=== PATIENT | female | born 1975 | race Caucasian/White ===

== ENCOUNTER 2016-12-12 14:03 | Inpatient (IN) ==
--- NOTE | 2016-12-12 14:29 | EKG Report ---
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
[2016-12-12] MEDS ORDERED: SODIUM CHLORIDE 0.9% 100 ML IV ONE (14:38)
[2016-12-12] MEDS ORDERED: DILTIAZEM 100 MG VIAL.ADD IV ONE (14:39)
[2016-12-12] MEDS ORDERED: DILTIAZEM 50 MG/10 ML VIAL IV ONE (14:39)
[2016-12-12] MEDS ORDERED: SODIUM CHLORIDE 0.9% 500 ML IV STA (14:47)
[2016-12-12] MEDS ORDERED: DILTIAZEM 50 MG/10 ML VIAL IV STA ×3 (14:47→15:44)
[2016-12-12] MEDS ORDERED: ASPIRIN 325 MG TABLET PO STA (14:53)
[2016-12-12 14:59] LABS: Basophils % 0.4 % (0.0-0.8); Eosinophils % 0.3 % (0.00-10.9); Hematocrit 42.3 VOL% (35.7-47.0); Hemoglobin 14.4 GM/DL (12.0-16.0); Immature Granulocytes % 0.6 %; Immature Granulocytes Absolute 0.07 #; Lymphocytes # 1.4 10*3/uL (1.4-4.0); Lymphocytes % 12.2 % (21.3-54.2); Mean Corpuscular Hemoglobin 31 PG (27-34); Mean Corpuscular Volume 90.8 FL (87-102); Mean Platelet Volume 9.5 FL (9.6-12.0); Monocytes # 0.6 10*3/uL (0.11-0.8); Monocytes % 5.4 % (1.7-12.7); Neutrophils # 9.3 10*3/uL (1.4-7.4); Neutrophils % 81.1 % (38.7-73.9); Platelet Count 238 T/CUMM (130-400); Red Blood Count 4.66 MC/CUMM (3.8-5.5); Red Cell Distribution Width 13.6 % (9.3-17.3); White Blood Count 11.4 T/CUMM (4-12)
[2016-12-12] MEDS ORDERED: DILTIAZEM INJ 100 MG in SODIUM CHLORIDE 0.9% 100 ML IV SCH (15:00)
[2016-12-12] MEDS ORDERED: METOPROLOL TARTRATE 5 MG/5 ML VIAL IV STA (15:03)
[2016-12-12 15:05] LABS: PT Patient Result 10.7 SECS
[2016-12-12] MEDS ORDERED: ASPIRIN 325 MG TABLET ONE (15:05)
[2016-12-12] MEDS ORDERED: METOPROLOL TARTRATE 5 MG/5 ML VIAL IV ONE (15:05)
--- NOTE | 2016-12-12 15:12 | XRay Report ---
XR chest 1V portable Indication: Shortness of breath. Chest one view: Comparison 11/26/2011. Mild cardiomegaly is present with central pulmonary vascular congestion and interstitial prominence of both lungs diffusely. No focal infiltrates shown. Lungs are hypoinflated, aggravated by morbid obesity. Impression: Mild CHF. Pulmonary hypoinflation. PROCEDURE INTERPRETED AT [facility] DEPARTMENT OF RADIOLOGY Final Report Signed by: Jose Elias Castellanos M.D.
[2016-12-12 15:22] LABS: Free T4 (Free Thyroxine) 1.12 NG/DL (0.76-1.46); Magnesium 1.9 MG/DL (1.8-2.4)
--- NOTE | 2016-12-12 15:27 | CT Report ---
Exam: CT head without intravenous contrast Clinical History: 41 years Female syncope, weakness Technique: Axial computed tomography images of the head/brain without intravenous contrast Comparison: No relevant comparisons Findings: Brain: Unremarkable. Gamino-white matter distinction maintained. No mass effect. No intra or extra-axial hemorrhage. Ventricles: Unremarkable. No ventriculomegaly. Bones/joints: Calvarium is intact Soft tissues: Unremarkable Sinuses: Small retention cysts within the maxillary sinuses Mastoid air cells: Unremarkable visualized. Impression: 1. No acute intracranial abnormality PROCEDURE INTERPRETED AT [facility] DEPARTMENT OF RADIOLOGY Final Report Signed by: Colby Gamino
[2016-12-12 15:28] LABS: Albumin 3.7 G/DL (3.4-5.0); Bilirubin,Total 0.6 MG/DL (0.2-1.0); Calcium 9.3 MG/DL (8.5-10.1); Potassium 3.9 MMOL/L (3.5-5.1); Thyroid Stimulating Hormone 1.56 uIU/ml (0.358-3.74); Total Protein 8.5 G/DL (6.4-8.3); Troponin I Only 0.045 NG/ML (0.00-0.045)
[2016-12-12] MEDS ORDERED: AMIODARONE 150 MG/3 ML VIAL ONE (16:04)
[2016-12-12] MEDS ORDERED: AMIODARONE INJ 150 MG in DEXTROSE 5% 100 ML IV ONE (16:04)
[2016-12-12] MEDS ORDERED: FUROSEMIDE 40 MG/4 ML VIAL IV STA (16:28)
[2016-12-12] MEDS ORDERED: AMIODARONE INJ 450 MG in DEXTROSE 5% 241 ML IV SCH ×3 (16:30→23:45)
--- NOTE | 2016-12-12 16:41 | Emergency Department Note ---
Morgan Sanchez Brooke, am scribing for, and in the presence of, Junior Roberts MD 14 :34. Armando Sanchez Charles R, MD, personally performed the services described in this documentation, ascribed by Evon Mora in my presence, and it is both accurate and complete [id number] . Arrival - Arrival Chief Complaint: Arrhythmia/Palpitations Stated Complaint: chest pain ED Nursing Triage Note: pt was fighting with her son and then she passed out and "quit breathing." pt doesnt remeber what happened. states feels like heart is racing Mode of Arrival: Stretcher Limitations: No Limitations Source: Patient, Family, EMS, RN Notes Reviewed Time Seen by Provider: 12/12/16 14:16 - History of Present Illness HPI Narrative: Patient is a 41 year old female who presents to the ED following an episode where she "quit breathing." Patient says she was sitting up at the table when it happened. Family member in the room with her says that he "revived her." Patient says she had just finished arguing with her son when this happened. Patient says it feels like her heart is "fluttering" but she denies having chest pain or shortness of breath. She also says that her tongue feels "numb." Patient says her Boiler Room Helper, at [facility], prescribed her Nifedipine 30mg and Metoprolol "to control the elevated heart rate." She says she has not taken any of her medications today. She has PMHx of HTN, hypothyroidism, and obstructive sleep apnea. Patient does have a c-pap machine but she says she does not use it because "I can't sleep with it." Patient says she sleeps sitting up on the couch every night. She says she does not have a history of diabetes but did have a high A1C "a long time ago." She states "my sugar is usually not high." She is not a smoker. Her Primary Care Provider is whoever is available at the [facility] in [facility]. Allergies/Adverse Reactions: Allergies Allergy/AdvReac Type Severity Reaction Status Date / Time No Known Allergies Allergy Unverified 12/12/16 14:13 Home Medications: Home Medications Medication Instructions Recorded Confirmed Type Levothyroxine Tab [Synthroid Tab] 100 mcg PO DAILY@0700 12/12/16 12/12/16 History Lisinopril/Hydrochlorothiazide 1 each PO BID 12/12/16 12/12/16 History [Lisinopril-Hctz 20-12.5 mg Tab] Metoprolol Succinate 100 mg PO QAM 12/12/16 12/12/16 History NIFEdipine [Nifedipine ER] 30 mg PO QAM 12/12/16 12/12/16 History Review of System - Review of System 12 point system: reviewed and no additional remarkable complaints except as stated - Review of System Constitutional: Absent: fever Respiratory: Present: other ("quit breathing"). Absent: respiratory distress Cardiovascular: Absent: chest pain Skin: Absent: rash Medical,Surgical,& Family Hx - Medical History Cardio: History of: Hypertension Endocrine: History of: Thyroid Disorder (hypothyoid) Respiratory: History of: Obstructive Sleep Apnea - Social History Smoking Status: Never smoker Frequency of Alcohol Use: Occasionally Type of Drug Use: None Exam Vital Signs: Vital Signs Temperature 97.6 F 12/12/16 14:08 Pulse Rate 149 H 12/12/16 14:08 Respiratory Rate 24 12/12/16 14:25 Blood Pressure 183/101 12/12/16 14:08 O2 Sat by Pulse Oximetry 96 12/12/16 14:08 - General General appearance: alert, in no apparent distress, obese (morbidly), other ( poor hygiene) - Head Head exam: Present: atraumatic, normocephalic - Eye Eye exam: Present: normal appearance, PERRL, EOMI - ENT ENT exam: Present: normal exam - Neck Neck exam: Present: normal inspection - Chest Chest inspection: Present: normal inspection, symmetric chest wall rise - Respiratory Respiratory exam: Present: rales (bilaterally), rhonchi (bilaterally), other ( decreased breath sounds but it may be due to her weight) - Cardiovascular Cardiovascular exam: Present: tachycardia, irregular rhythm, normal heart sounds. Absent: regular rate, normal rhythm - Abdominal Exam Abdominal exam: Present: soft, normal bowel sounds. Absent: distention, tenderness - Extremities Exam Extremities exam: Present: pedal edema (+1 bilateral lower extremity) - Back Exam Back exam: Present: normal inspection - Neurological Exam Neurological exam: Present: alert, oriented X3 - Psychiatric Psychiatric exam: Present: normal affect, normal mood - Skin Skin exam: Present: warm, dry, intact, normal color Course - Reevaluation(s) Reevaluation #1: Patient still having palpitation some minimal shortness of breath no chest pain. Multiple attempts were tried to lower the patient's heart rate patient was given a Adenocard twice 6 mg and 12 mg which failed to lower her heart rate , patient was given Cardizem bolus and infusion which failed to lower her heart rate, patient was given IV beta-erna which failed to lower her heart rate. Patient does not want to be shocked using electric cardioversion at this point. We spoke to Dr. Flores he said this to admit to his service will keep her on a amiodarone infusion. Patient was also given amiodarone emergency room which did not show any decrease in heart rate as well Time: 16:59 - Consultations Consultation #1: Dr. Flores will admit patient to the hospital Time: 16:59 Results - Labs CBC & BMP: 12/12/16 14:22 12/12/16 14:22 Lab Results: I have reviewed the patients labs Labs: Laboratory Tests 12/12/16 14:22 WBC 11.4 RBC 4.66 Hgb 14.4 Hct 42.3 MCV 90.8 MCH 31 MCHC 34.0 RDW 13.6 Plt Count 238 MPV 9.5 L Neut % (Auto) 81.1 H Lymph % (Auto) 12.2 L [place] % (Auto) 5.4 Eos % (Auto) 0.3 Baso % (Auto) 0.4 Neut # (Auto) 9.3 H Lymph # (Auto) 1.4 [place] # (Auto) 0.6 Eos # (Auto) 0.0 Baso # (Auto) 0.0 Immature Gran % 0.6 Nucleated RBC % 0.0 Immature Gran # 0.07 Nucleated RBCs # 0.00 Immature Plt Fraction 0.0 Laboratory Tests 12/12/16 12/12/16 12/12/16 14:22 14:22 14:22 INR 1.0 PT Patient/Control Mix 10.7 D-Dimer, Quantitative Sodium 136 Potassium 3.9 Chloride 102 Carbon Dioxide 26 Anion Gap 11.9 BUN 12 Creatinine 0.70 GFR Calculation 180 BUN/Creatinine Ratio 17.00 Glucose 211 H Calculated Osmolality 277.0 Calcium 9.3 Magnesium 1.9 Total Bilirubin 0.60 AST 68 H ALT 71 H Alkaline Phosphatase 70 Troponin I 0.045 Total Protein 8.5 H Albumin 3.7 Globulin 4.8 H Albumin/Globulin Ratio 0.7 L Free T4 1.12 TSH 3rd Generation 1.560 12/12/16 14:22 INR PT Patient/Control Mix D-Dimer, Quantitative <= 0.5 Sodium Potassium Chloride Carbon Dioxide Anion Gap BUN Creatinine GFR Calculation BUN/Creatinine Ratio Glucose Calculated Osmolality Calcium Magnesium Total Bilirubin AST ALT Alkaline Phosphatase Troponin I Total Protein Albumin Globulin Albumin/Globulin Ratio Free T4 TSH 3rd Generation Laboratory Tests 12/12/16 14:22 B-Natriuretic Peptide 3 Laboratory Tests 12/12/16 12/12/16 14:22 14:22 Urine Color Yellow Urine Appearance Slightly hazy Urine pH 5.0 Ur Specific [place] 1.018 Urine Protein 100 Urine Glucose (UA) 50 Urine Ketones 20 Urine Blood Negative Urine Nitrate Negative Urine Bilirubin Negative Urine Urobilinogen < 2.0 H Urine Leukocytes Negative Urine RBC 1 Urine WBC 2 Ur Squamous Epith Cells Occasional Urine Bacteria Occasional Urine Mucus Occasional Ur Culture Indicated? Not indicated Urine Opiates Screen Negative Ur Barbiturates Screen Negative Ur Phencyclidine Scrn Negative U Amphetamine/Methamph Negative U Benzodiazepines Scrn Negative U Cocaine Metab Screen Negative U Cannabinoids Screen Negative - Diagnostic Findings Procedure: Chest x-ray: report reviewed by me (Mild CHF. Pulmonary hypoinflation.), CT: report reviewed by me (CT head/brain wo con: No acute intracranial abnormality.) Critical Care Time Critical Care Time: Yes Total Critical Care Time: 60 Disposition Clinical Impression: Palpitations, Supraventricular tachycardia, Syncope and collapse, Morbid obesity, Pickwickian syndrome, MCKINLEY (obstructive sleep apnea), Atrial fibrillation with RVR Case discussed with: patient, patient's family Disposition: Still a Patient Condition: Guarded Time of Disposition: 17:01
[2016-12-12] MEDS ORDERED: ADENOSINE 6 MG/2 ML VIAL ONE (16:42)
[2016-12-12 16:44] LABS: Barbiturates Screen,Urine Negative (Negative); Benzodiazepines Screen,Urine Negative (Negative); Cannabinoid Screen,Urine Negative (Negative); Opiate Screen,Urine Negative (Negative); Phencyclidine Screen,Urine Negative (Negative)
[2016-12-12 16:46] LABS: Apearance,Urine Slightly Hazy (Clear); Bacteria,Urine Occasional /HPF (Few); Bilirubin,Urine Negative (Negative); Blood, Urine Negative (Negative); Glucose,Urine (UA) 50 mg/dL (Negative); Ketones,Urine 20 mg/dL (Negative); Mucus,Urine Occasional /LPF (Occasional); Nitrite,Urine Negative (Negative); Protein,Urine 100 MG/DL; RBC,Urine 1 /HPF (0-4); Squamous Epithelial Cell,Urine Occasional /HPF (0-10); Urine Color Yellow (Yellow); Urine Specific Gravity 1.018 (1.001-1.035); Urine Urobilinogen < 2.0 EU/DL (0.2-1.0); WBC,Urine 2 /HPF (0-6)
[2016-12-12] MEDS ORDERED: ADENOSINE 6 MG/2 ML VIAL IV STA ×2 (16:54→16:55)
[2016-12-12] MEDS ORDERED: FUROSEMIDE 40 MG/4 ML VIAL ONE (16:58)
[2016-12-12] MEDS ORDERED: ALBUTEROL/IPRATROPIUM 3 ML NEB RESP TX PRN (18:53)
[2016-12-12] MEDS ORDERED: SODIUM CHLORIDE 0.9% 1,000 ML IV SCH (18:53)
[2016-12-12] MEDS ORDERED: POTASSIUM CHLORIDE 20 MEQ TABLET PO PRN (18:53)
[2016-12-12] MEDS ORDERED: MAGNESIUM SULF RIDER 2 GM in PREMIX 1 EACH IV PRN (18:53)
[2016-12-12] MEDS ORDERED: GLUCAGON 1 MG VIAL IM PRN (18:53)
[2016-12-12] MEDS ORDERED: MAGNESIUM SULF RIDER 4 GM in PREMIX 1 EACH IV PRN (18:53)
[2016-12-12] MEDS ORDERED: MORPHINE 2 MG/1 ML SYRINGE IV PRN (18:53)
[2016-12-12] MEDS ORDERED: DEXTROSE 50% 25 GM/50 ML VIAL IV PRN (18:53)
--- NOTE | 2016-12-12 19:41 | Cardiology History & Physical ---
Assessment and Plan (1) Palpitations Status: Chronic Assessment and plan: She has had chronic palpitations previously and evaluated previously. Current Visit: Yes (2) Supraventricular tachycardia Status: Acute Assessment and plan: Today she has at least an acute episode. This appears to be again atrial flutter/atrial tachycardia with 2 1 AV block. She is on amiodarone and we will add beta-erna and medications for hypertension. Current Visit: Yes (3) Syncope and collapse Status: Acute Assessment and plan: This an acute event today it may be related to her tachyarrhythmia or other. Current Visit: Yes (4) Morbid obesity Status: Chronic Assessment and plan: This is really a chronic issue. She needs to lose weight and be beneficial multiple ways. Current Visit: Yes (5) MCKINLEY (obstructive sleep apnea) Status: Chronic Assessment and plan: She may actually have a pickwickian type syndrome. Current Visit: Yes (6) Hypertension, uncontrolled Status: Acute Assessment and plan: She has chronic hypertension but is poor control now we will need to advance and adjust her medications for this. Current Visit: Yes History of Present Illness Chief complaint: Palpitations History of present illness: Ms. Neumann is a 41 year old female who today at home had an episode where apparently she lost conscious for about 2 minutes. Her boyfriend told her that she turned blue. He attempted CPR but the patient came to. It is unlikely he did any effective CPR. She was brought to the emergency room here where she was found to be in a supraventricular tachycardia. Reviewing her strips it appears that she is in atrial flutter/atrial tachycardia with 2-1 AV block. The patient has a history of tachycardias been seen by head golf professional at [facility] previously 2 years ago. He placed her on metoprolol and reduce her nifedipine dosing. Is really not clear why. The patient also had chest pain was felt was noncardiac chest pain was more muscle skeletal. She did not have a cardiac catheterization is not clear what other studies was carried out. We will attempt to get these records. The patient denies any recent chest pain. She noted the emergency room that she was given diltiazem and adenosine without any change. She was started on amiodarone. She is on amiodarone at present. She is somewhat of a poor historian her general health is been poor. She is chronic morbid obesity. Home Medications Medication Instructions Recorded Confirmed Type Levothyroxine Tab [Synthroid Tab] 100 mcg PO DAILY@0700 12/12/16 12/12/16 History Lisinopril/Hydrochlorothiazide 1 each PO BID 12/12/16 12/12/16 History [Lisinopril-Hctz 20-12.5 mg Tab] Metoprolol Succinate 100 mg PO QAM 12/12/16 12/12/16 History NIFEdipine [Nifedipine ER] 30 mg PO QAM 12/12/16 12/12/16 History Allergies Allergy/AdvReac Type Severity Reaction Status Date / Time No Known Allergies Allergy Unverified 12/12/16 14:13 Review of systems: Constitutional: She has chronic obesity. A lot of fatigue. Eyes: Denies visual changes or loss of vision Ears: Denies decreased hearing, vertigo Nose, mouth and throat: Denies dysphagia, epistaxis, headaches, neck pain Neck: Denies thyromegaly or masses. No stiffness. Cardiovascular: as per HPI Respiratory: Denies cough, dyspnea, hemoptysis, unusual progressive dyspnea but has some element of dyspnea secondary to her obesity. She does have obstructive sleep apnea but does not use her CPAP machine. Gastrointestinal: Denies abdominal pain, constipation, dyspepsia, dysphagia, hematemesis, hematochezia, melena, nausea, vomiting Genitourinary: Denies dysuria, hematuria, nocturia Musculoskeletal: Denies arthralgias, joint swelling, muscle weakness, myalgias Neurological: denies abnormal gait, abnormal speech, confusion, convulsions, frequent falls, headaches, memory loss, syncope Psychiatric: Denies anxiety, confusion, depression Endocrine: Denies cold intolerance, fatigue, heat intolerance Hematologic/Lymphatic: Denies easy bleeding, easy bruising Dermatologic: Has psoriasis. Medical,Surgical,& Family Hx - Medical History Cardio: History of: Cardiac Dysrhythmia (History of palpitations and fast heart rates previously), Hypertension Endocrine: History of: Thyroid Disorder (hypothyoid) Respiratory: History of: Obstructive Sleep Apnea (Does not use her CPAP machine. ) Other: History of: Miscellaneous Medical Problems (Psoriasis, chronic obesity) - Surgical History Reproductive Surgeries: Surgical HX of;: Section - Family History Family History: noncontributory - Social History Smoking Status: Never smoker Frequency of Alcohol Use: Occasionally Type of Drug Use: None Marital Status: Single Lives With:: Significant Other Functional capacity: independent ambulation Cardiology Physical Exam - Constitutional Vitals: Vital Signs Temp Pulse Resp BP Pulse Ox 98.7 F 148 H 22 183/85 95 12/12/16 18:53 12/12/16 18:53 12/12/16 18:53 12/12/16 18:53 12/12/16 18:53 Intake and Output 12/12/16 12/12/16 12/12/16 07:59 15:59 23:59 Intake Total 505 / 505 Balance 505 / 505 Intake: IV 505 / 505 Cardizem Inj 100 mg In Ns 5 / 5 100 ml @ 5 MG/HR 5 mls/ hr IV TITRATE GREGG Rx#: [id number] Ns 500 ml @ 999 mls/hr IV 500 / 500 1X ED BOLUS STA Rx#: [id number] Other: Weight 211.828 kg 211.828 kg Patient Weight 12/12/16 23:59 Weight 211.828 kg Exam: General appearance: Morbidly obese, no acute distress Head exam: normal inspection, atraumatic Eye exam: Pupils are equal and reactive. EOMI. There is no trauma. Ear exam: Anatomically normal. Normal auditory acuity to conversation. Oral exam: No significant oral lesions. Neck exam: normal inspection no JVD. No carotid bruit. Trachea is in midline. Respiratory exam: clear to auscultation bilaterally and anteriorly with good air movement. No rales, rhonchi or wheezes. Cardiovascular exam: Tachycardic and regular, no gross murmur or gallop or rub. No precordial lift. No bruits over the major arteries. Chest wall/torso: Anatomically normal. No tenderness, deformity Peripheral Pulses: 2+ throughout. GI/Abdominal exam: Morbidly obese and this limits the exam. Normal bowel sounds , soft and nontender. Musculoskeletal/Extremities exam: She does have some ankle edema. Neurological exam: alert, oriented X3. There is no gross neurologic deficits. Psychiatric exam: normal affect, normal mood. Cognitive function is grossly intact. Skin exam: Psoriasis patches noted. Result/EKG - Labs CBC & BMP: 12/12/16 14:22 12/12/16 14:22 Lab Results: I have reviewed the past 24 hour labs Labs: Laboratory Results - last 24 hr 12/12/16 12/12/16 12/12/16 14:22 14:22 14:22 WBC RBC Hgb Hct MCV MCH MCHC RDW Plt Count MPV Neut % (Auto) Lymph % (Auto) [place] % (Auto) Eos % (Auto) Baso % (Auto) Neut # (Auto) Lymph # (Auto) [place] # (Auto) Eos # (Auto) Baso # (Auto) Immature Gran % Nucleated RBC % Immature Gran # Nucleated RBCs # Immature Plt Fraction INR 1.0 PT Patient/Control Mix 10.7 D-Dimer, Quantitative Sodium Potassium Chloride Carbon Dioxide Anion Gap BUN Creatinine GFR Calculation BUN/Creatinine Ratio Glucose Calculated Osmolality Calcium Magnesium 1.9 Total Bilirubin AST ALT Alkaline Phosphatase Troponin I B-Natriuretic Peptide 3 Total Protein Albumin Globulin Albumin/Globulin Ratio Free T4 1.12 TSH 3rd Generation Urine Color Urine Appearance Urine pH Ur Specific [place] Urine Protein Urine Glucose (UA) Urine Ketones Urine Blood Urine Nitrate Urine Bilirubin Urine Urobilinogen Urine Leukocytes Urine RBC Urine WBC Ur Squamous Epith Cells Urine Bacteria Urine Mucus Ur Culture Indicated? Urine Opiates Screen Ur Barbiturates Screen Ur Phencyclidine Scrn U Amphetamine/Methamph U Benzodiazepines Scrn U Cocaine Metab Screen U Cannabinoids Screen 12/12/16 12/12/16 12/12/16 14:22 14:22 14:22 WBC 11.4 RBC 4.66 Hgb 14.4 Hct 42.3 MCV 90.8 MCH 31 MCHC 34.0 RDW 13.6 Plt Count 238 MPV 9.5 L Neut % (Auto) 81.1 H Lymph % (Auto) 12.2 L [place] % (Auto) 5.4 Eos % (Auto) 0.3 Baso % (Auto) 0.4 Neut # (Auto) 9.3 H Lymph # (Auto) 1.4 [place] # (Auto) 0.6 Eos # (Auto) 0.0 Baso # (Auto) 0.0 Immature Gran % 0.6 Nucleated RBC % 0.0 Immature Gran # 0.07 Nucleated RBCs # 0.00 Immature Plt Fraction 0.0 INR PT Patient/Control Mix D-Dimer, Quantitative Sodium 136 Potassium 3.9 Chloride 102 Carbon Dioxide 26 Anion Gap 11.9 BUN 12 Creatinine 0.70 GFR Calculation 180 BUN/Creatinine Ratio 17.00 Glucose 211 H Calculated Osmolality 277.0 Calcium 9.3 Magnesium Total Bilirubin 0.60 AST 68 H ALT 71 H Alkaline Phosphatase 70 Troponin I 0.045 B-Natriuretic Peptide Total Protein 8.5 H Albumin 3.7 Globulin 4.8 H Albumin/Globulin Ratio 0.7 L Free T4 TSH 3rd Generation 1.560 Urine Color Urine Appearance Urine pH Ur Specific [place] Urine Protein Urine Glucose (UA) Urine Ketones Urine Blood Urine Nitrate Urine Bilirubin Urine Urobilinogen Urine Leukocytes Urine RBC Urine WBC Ur Squamous Epith Cells Urine Bacteria Urine Mucus Ur Culture Indicated? Urine Opiates Screen Negative Ur Barbiturates Screen Negative Ur Phencyclidine Scrn Negative U Amphetamine/Methamph Negative U Benzodiazepines Scrn Negative U Cocaine Metab Screen Negative U Cannabinoids Screen Negative 12/12/16 12/12/16 14:22 14:22 WBC RBC Hgb Hct MCV MCH MCHC RDW Plt Count MPV Neut % (Auto) Lymph % (Auto) [place] % (Auto) Eos % (Auto) Baso % (Auto) Neut # (Auto) Lymph # (Auto) [place] # (Auto) Eos # (Auto) Baso # (Auto) Immature Gran % Nucleated RBC % Immature Gran # Nucleated RBCs # Immature Plt Fraction INR PT Patient/Control Mix D-Dimer, Quantitative <= 0.5 Sodium Potassium Chloride Carbon Dioxide Anion Gap BUN Creatinine GFR Calculation BUN/Creatinine Ratio Glucose Calculated Osmolality Calcium Magnesium Total Bilirubin AST ALT Alkaline Phosphatase Troponin I B-Natriuretic Peptide Total Protein Albumin Globulin Albumin/Globulin Ratio Free T4 TSH 3rd Generation Urine Color Yellow Urine Appearance Slightly hazy Urine pH 5.0 Ur Specific [place] 1.018 Urine Protein 100 Urine Glucose (UA) 50 Urine Ketones 20 Urine Blood Negative Urine Nitrate Negative Urine Bilirubin Negative Urine Urobilinogen < 2.0 H Urine Leukocytes Negative Urine RBC 1 Urine WBC 2 Ur Squamous Epith Cells Occasional Urine Bacteria Occasional Urine Mucus Occasional Ur Culture Indicated? Not indicated Urine Opiates Screen Ur Barbiturates Screen Ur Phencyclidine Scrn U Amphetamine/Methamph U Benzodiazepines Scrn U Cocaine Metab Screen U Cannabinoids Screen - Impressions Impressions: ECG and telemetry strips with what appears to be atrial flutter/atrial tachycardia probable 2-1 block.
[2016-12-12] MEDS ORDERED: cloNIDine 0.1 MG TABLET PO PRN (19:49)
[2016-12-12 21:01] LABS: Troponin I Only 0.024 NG/ML (0.00-0.045)
[2016-12-12] MEDS: LISINOPRIL/HCTZ 20-12.5 MG TABLET PO SCH (21:12)
[2016-12-12] MEDS: ENOXAPARIN 40 MG/0.4 ML SYRINGE SUBCUT SCH (21:14)
[2016-12-12] MEDS: INSULIN REGULAR 100 UNIT/ML SUBCUT SCH (21:16)
[2016-12-13 00:38] LABS: Troponin I Only < 0.015 NG/ML (0.00-0.045)
[2016-12-13 05:15] LABS: Basophils % 0.4 % (0.0-0.8); Eosinophils # 0.1 10*3/uL (0.0-0.87); Eosinophils % 0.8 % (0.00-10.9); Hematocrit 39.3 VOL% (35.7-47.0); Hemoglobin 13.4 GM/DL (12.0-16.0); Immature Granulocytes % 0.5 %; Immature Granulocytes Absolute 0.06 #; Lymphocytes # 3.1 10*3/uL (1.4-4.0); Lymphocytes % 27.9 % (21.3-54.2); Mean Corpuscular HGB Conc 34.1 GM/DL (32-36); Mean Corpuscular Hemoglobin 31 PG (27-34); Mean Corpuscular Volume 90.8 FL (87-102); Mean Platelet Volume 9.6 FL (9.6-12.0); Monocytes # 0.8 10*3/uL (0.11-0.8); Monocytes % 6.9 % (1.7-12.7); Neutrophils # 6.9 10*3/uL (1.4-7.4); Neutrophils % 63.5 % (38.7-73.9); Platelet Count 252 T/CUMM (130-400); Red Blood Count 4.33 MC/CUMM (3.8-5.5); Red Cell Distribution Width 13.5 % (9.3-17.3); White Blood Count 10.9 T/CUMM (4-12)
[2016-12-13 05:58] LABS: Troponin I Only < 0.015 NG/ML (0.00-0.045)
[2016-12-13 05:59] LABS: Albumin 3.6 G/DL (3.4-5.0); Bilirubin,Total 1.5 MG/DL (0.2-1.0); Calcium 9.4 MG/DL (8.5-10.1); Magnesium 2.2 MG/DL (1.8-2.4); Osmolality,Calculated 279.5 MOS/KG (273-304); Potassium 3.5 MMOL/L (3.5-5.1); Risk Ratio 3.62; Total Protein 7.5 G/DL (6.4-8.3); VLDL CHOLESTEROL 37.4 MG/DL
[2016-12-13] MEDS: LEVOTHYROXINE 100 MCG TABLET PO SCH (06:22)
--- NOTE | 2016-12-13 08:25 | XRay Report ---
History: Shortness of breath Date: 12/13/2016 Study: Chest x-ray AP portable Comparison exam: 12/12/2016 There is stable cardiomegaly. The mediastinal contour is unchanged. The pulmonary vasculature is borderline prominent. The exam was performed in shallow inspiration with some bronchovascular crowding in the lung bases. No gross pneumonia is identified. There is no gross pleural effusion. Osseous structures are similar. Impression: Cardiomegaly and borderline CHF appearance. Shallow inspiration with bronchovascular crowding in the lung bases. PROCEDURE INTERPRETED AT [facility] DEPARTMENT OF RADIOLOGY Final Report Signed by: Dr. Renita Logan
[2016-12-13] MEDS: FUROSEMIDE 20 MG/2 ML VIAL IV SCH ×2 (08:57→18:13)
[2016-12-13] MEDS: INSULIN REGULAR 100 UNIT/ML SUBCUT SCH ×4 (09:15→21:13)
[2016-12-13] MEDS: METOPROLOL SUCCINATE XL 100 MG TABLET PO SCH (09:16)
[2016-12-13] MEDS: LISINOPRIL/HCTZ 20-12.5 MG TABLET PO SCH ×2 (09:16→21:15)
[2016-12-13] MEDS: amLODIPine 10 MG TABLET PO SCH (09:16)
[2016-12-13] MEDS: PANTOPRAZOLE 40 MG TABLET PO SCH (09:16)
--- NOTE | 2016-12-13 13:09 | Sleep Medicine Consult ---
Assessment and Plan (1) MCKINLEY (obstructive sleep apnea) Status: Chronic Assessment and plan: We will have the sleep lab refit her with CPAP and try her on auto titration and see what kind of result we get. We also could try BiPAP if CPAP does not work given her issues in the past with difficulty tolerating CPAP. Current Visit: Yes (2) Hypertension, uncontrolled Status: Chronic Assessment and plan: The prevalence rate for obstructive sleep apnea patients with hypertension is 35 %. That rate can be as high as 80% in patients who require 4 or more medications for blood pressure control. Current Visit: Yes (3) Morbid obesity Status: Chronic Assessment and plan: Patient encouraged to continue to work on weight loss thru appropriate dieting and exercise. The combination of weight loss and CPAP therapy for obstructive sleep apnea is better than either therapy alone for obstructive sleep apnea. Current Visit: Yes History of Present Illness Chief complaint: Sleep apnea History of present illness: Ms. Neumann is a 41 year old female who has been seen by me in the past. I apparently evaluated her at [facility] sleep center. She had originally been diagnosed with obstructive sleep apnea several years ago in [facility]. She was unable to tolerate CPAP. On her sleep study done at [facility], it was done in a split-night fashion with the first portion of the study diagnostic of severe sleep apnea, having a diagnostic AHI of 63.3. She was titrated with CPAP and prescribed 9 cm. She had good control with that titration. She had a syncopal episode yesterday associated with cardiac arrhythmia. Her states that she became very blue and was having apneic episodes. She was brought by ambulance and admitted. Sleep medicine was consulted to reassess her sleep apnea. She states that she simply has a difficult time tolerating the CPAP mask and has had issues with claustrophobia in the past. She states her weight is been stable over the past year. Home Medications Medication Instructions Recorded Confirmed Type Levothyroxine Tab [Synthroid Tab] 100 mcg PO DAILY@0700 12/12/16 12/12/16 History Lisinopril/Hydrochlorothiazide 1 each PO BID 12/12/16 12/12/16 History [Lisinopril-Hctz 20-12.5 mg Tab] Metoprolol Succinate 100 mg PO QAM 12/12/16 12/12/16 History NIFEdipine [Nifedipine ER] 30 mg PO QAM 12/12/16 12/12/16 History Allergies Allergy/AdvReac Type Severity Reaction Status Date / Time No Known Allergies Allergy Unverified 12/12/16 14:13 Review of systems: Otherwise unremarkable from a sleep standpoint. Exam (Pulmonay) H&P - Constitutional Vitals: Period Temp Pulse Resp BP Sys/Jain Pulse Ox Last 24 Hr 97.3 F-99.1 F 83-157 18-24 114-183/57-115 92-97 Exam: She is alert and responsive. She is sitting up on the side of the bed eating lunch. Pupils equal round reactive to light and accommodation. Extraocular movements intact. Oropharynx with a class IV Mallampati exam. Neck is large and supple without adenopathy or thyromegaly. Chest with good air movement and no focal wheeze or rhonchi. Cardiac exam reveals a regular rhythm without murmur or gallop. Abdomen obese nontender without palpable hepatosplenomegaly or mass. Extremities are without significant clubbing, cyanosis, or edema. Neurologically, she is grossly intact. She moves all extremities with good strength. Medical,Surgical,& Family Hx - Medical History Cardio: History of: Cardiac Dysrhythmia (History of palpitations and fast heart rates previously), Hypertension Endocrine: History of: Thyroid Disorder (hypothyoid) Respiratory: History of: Obstructive Sleep Apnea (Does not use her CPAP machine. ) Other: History of: Miscellaneous Medical Problems (Psoriasis, chronic obesity) - Surgical History Reproductive Surgeries: Surgical HX of;: Section - Social History Smoking Status: Never smoker Frequency of Alcohol Use: Occasionally Type of Drug Use: None Results - Labs CBC & BMP: 12/13/16 04:49 12/13/16 04:49 Labs: TSH is normal
[2016-12-13] MEDS: ENOXAPARIN 40 MG/0.4 ML SYRINGE SUBCUT SCH (17:56)
--- NOTE | 2016-12-13 19:26 | Electrophysiology Consultation ---
History of Present Illness - Data of Consult Patient: new to practice Consult date: 12/13/16 - Consult Narrative Reason for consult: AFL, SVT History of present illness: Ms. Neumann is a 41 year old female. Morbid obesity, history of obstructive sleep apnea, for which she was unable to tolerate CPAP, hypertension, which was well controlled. Hypothyroidism, Synthroid. She was admitted after an episode of syncope. She felt her heart beating fast, then her found her unresponsive and blue and apparently, administered CPR. On admission, she was found to be in regular SVT, heart rate 150 bpm, suggestive of atrial flutter. IV amiodarone was started, and she converted back to sinus rhythm later, without a significant conversion post. Sinus rhythm , with normal interval since. The amiodarone drip was stopped. No prior history of significant bleeding issues. Borderline elevated LFTs, otherwise unremarkable labs. She was evaluated by Dr. Yun at [place] before. Echo in 2013 showed a normal ejection fraction, normal pulmonary pressure, normal atrial size. No significant valvular issues. CC: Jose Elias Flores MD - Home Medications and Allergies Home Medications: Home Medications Medication Instructions Recorded Confirmed Type Levothyroxine Tab [Synthroid Tab] 100 mcg PO DAILY@0700 12/12/16 12/12/16 History Lisinopril/Hydrochlorothiazide 1 each PO BID 12/12/16 12/12/16 History [Lisinopril-Hctz 20-12.5 mg Tab] Metoprolol Succinate 100 mg PO QAM 12/12/16 12/12/16 History NIFEdipine [Nifedipine ER] 30 mg PO QAM 12/12/16 12/12/16 History Allergies/Adverse Reactions: Allergies Allergy/AdvReac Type Severity Reaction Status Date / Time No Known Allergies Allergy Unverified 12/12/16 14:13 Medical,Surgical,& Family Hx - Medical History Cardio: History of: Cardiac Dysrhythmia (History of palpitations and fast heart rates previously), Hypertension Endocrine: History of: Thyroid Disorder (hypothyoid) Respiratory: History of: Obstructive Sleep Apnea (Does not use her CPAP machine. ) Other: History of: Miscellaneous Medical Problems (Psoriasis, chronic obesity) - Surgical History Reproductive Surgeries: Surgical HX of;: Section - Social History Smoking Status: Never smoker Frequency of Alcohol Use: Occasionally Type of Drug Use: None 12 point system: reviewed and no additional remarkable complaints except as stated Exam - Constitutional Vitals: Period Temp Pulse Resp BP Sys/Jain Pulse Ox Last 24 Hr 97.3 F-99.1 F 82-157 18-20 114-149/57-115 92-97 General appearance: no acute distress, morbidly obese - Head Head exam: Present: normal inspection. Absent: contusion - Eye Eye exam: Absent: periorbital swelling, laceration to eyelids Pupils: Absent: dilated - ENT ENT exam: Present: normal external ear exam - Neck Neck exam: Present: normal inspection - Respiratory Respiratory exam: Present: clear to auscultation bilaterally. Absent: chest wall tenderness - Cardiovascular Cardiovascular exam: Present: regular rate and rhythm. Absent: JVD, systolic murmur - GI/Abdominal GI/Abdominal exam: Present: normal bowel sounds. Absent: distended - Extremities Exam Extremities exam: Present: normal inspection, normal capillary refill. Absent: edema - Back Exam Back exam: Present: normal inspection - Neurological Exam Neurological exam: Present: alert, oriented X3 - Psychiatric Psychiatric exam: Present: normal affect, normal mood - Skin Skin exam: Present: normal color, warm, other (Chronic venous stasis) Results - Labs CBC & BMP: 12/13/16 04:49 12/13/16 04:49 Assessment and Plan (1) Supraventricular tachycardia Status: Acute Assessment and plan: 41-year-old female, symptomatic atrial flutter, RVR, syncope, morbid obesity, MCKINLEY, hypertension, hypothyroidism. -Atrial flutter. Now back in sinus rhythm. The syncope is suspicious for either hemodynamically significant tachycardia, or conversion pause. -Continue Toprol XL 100 mg daily. -Start aspirin 325 mg daily. -Encouraged to use CPAP and follow-up with sleep regarding her severe MCKINLEY. -Recommend to discharge this 30 day event recorder. If the flutter or A. fib recurs, she would be a candidate for anticoagulation. CHADSVASC 2. -If the flutter recurs and remains difficult to control with medications, ablation is an option. I recommend to follow-up with EP in 5 weeks. If she does have significant conversion pauses or tachybrady, despite better compliance with CPAP, she may be a candidate for dual-chamber pacing. Current Visit: Yes (2) Syncope and collapse Status: Acute Current Visit: Yes
--- NOTE | 2016-12-13 20:22 | Cardiology Progress Note ---
Silverio Sanchez Lesley, NP, am scribing for, and in the presence of, Jose Elias Flores MD 20:22. Assessment and Plan - Time spent with patient Time spent with patient: Greater than 30 minutes (1) Palpitations Status: Acute Assessment and plan: SEE PLAN LISTED BELOW Current Visit: Yes (2) Supraventricular tachycardia Status: Acute Assessment and plan: SEE PLAN LISTED BELOW Current Visit: Yes (3) Syncope and collapse Status: Acute Assessment and plan: SEE PLAN LISTED BELOW Current Visit: Yes (4) Morbid obesity Status: Chronic Assessment and plan: SEE PLAN LISTED BELOW Current Visit: Yes (5) MCKINLEY (obstructive sleep apnea) Status: Chronic Assessment and plan: SEE PLAN LISTED BELOW Current Visit: Yes (6) Hypertension, uncontrolled Status: Chronic Assessment and plan: SEE PLAN LISTED BELOW Current Visit: Yes Cardiology - PN: Subj Interval history: SECOND WORKER: Dr. Yun ([place]) Ms. Neumann is a 41 year old WF, admitted for a syncopal episode. Her boyfriend witnessed the event and reported that the patient lost consciousness for about 2 minutes and appeared to turn blue. He attempted CPR and the patient regained consciousness. The patient was admitted to telemetry with an atrial flutter/atrial tachycardia with 2-1 AV block.The patient has a history of tachycardia and was seen at [place] in [address] Yun. Those records have been obtained and review. An Echocardiogram was done and found to be essentially normal. The patient denied recent chest pain.The patient is currently on an Amiodarone infusion. She reports that she gets dyspneic on exertion with short distances (10 feet) and that this has worsened significantly in the last 6 months to one year. The patient is morbidly obese. Plan to consult Dr. Martino, [facility], for arrhythmia/tachycardia. Will also consult Sleep Medicine. Discussed this with the patient and her significant other. ROS: No acute distress Morbidly obese Denies chest pain or dyspnea at rest IMPRESSION AND PLAN: 1. SUPRAVENTRICULAR TACHYCARDIA - Amiodarone load and infusion, rate controlled. Dr. Martino evaluation recommends D/C Amiodarone and maximize beta blockers. 2. SYNCOPE - acute event, new onset. Head CT negative. 3. MORBID OBESITY - Weight loss medically necessary, dietary consult prior to discharge. 4. MCKINLEY - consider obesity hypoventilation syndrome, consult Dr. Pearson. 5. HYPERTENSION - established problem, improved, monitor and adjust medications as needed. 6. HYPERLIPIDEMIA - Trigs 187, LDL 100, initiate statin therapy. Patient personally interviewed and examined by me and chart reviewed in the present of JOSE Forman. I agree with the history a as well as assessment and plan. Dr. Salena Pearson and evaluate the patient is well. Agree with Dr. Martino that the patient should have an event monitor for a month and will follow him in [address] Pearson is evaluating the patient from a sleep apnea standpoint certainly can contribute to her rhythm issues. Her obesity is a major issue and will be difficult to resolve. On my visit with the patient later tonight the patient was concerned about being his considered for swing bed. She is not sure why this would be. She does not want to go to swing bed. I am not sure that she needs to. I am not sure what benefit she would achieve with swing bed at this time. Help with the patient will be able to be discharged tomorrow if she remains in normal sinus rhythm. Exam (Progress Note) - Constitutional Vitals: Period Temp Pulse Resp BP Sys/Jain Pulse Ox Last 24 Hr 97.3 F-99.1 F 83-157 18-24 114-183/57-115 92-97 General appearance: no acute distress, over weight, morbidly obese - Head Head exam: Present: normal inspection, normocephalic - Eye Eye exam: Present: EOMI Pupils: Present: PK, normal accommodation - Respiratory Respiratory exam: Present: clear to auscultation bilaterally - Cardiovascular Cardiovascular exam: Present: regular rate and rhythm - GI/Abdominal GI/Abdominal exam: Present: normal bowel sounds, soft - Extremities Exam Extremities exam: Present: full ROM - Neurological Exam Neurological exam: Present: alert, oriented X3 - Psychiatric Psychiatric exam: Present: normal affect - Skin Skin exam: Present: warm, dry Result/EKG - Labs CBC & BMP: 12/13/16 04:49 12/13/16 04:49 Lab Results: I have reviewed the past 24 hour labs Labs: Laboratory Results - last 24 hr 12/12/16 12/12/16 12/12/16 14:22 14:22 14:22 WBC RBC Hgb Hct MCV MCH MCHC RDW Plt Count MPV Neut % (Auto) Lymph % (Auto) Cocke % (Auto) Eos % (Auto) Baso % (Auto) Neut # (Auto) Lymph # (Auto) Cocke # (Auto) Eos # (Auto) Baso # (Auto) Immature Gran % Nucleated RBC % Immature Gran # Nucleated RBCs # Immature Plt Fraction INR 1.0 PT Patient/Control Mix 10.7 D-Dimer, Quantitative Sodium Potassium Chloride Carbon Dioxide Anion Gap BUN Creatinine GFR Calculation BUN/Creatinine Ratio Glucose POC Glucose Calculated Osmolality Calcium Magnesium 1.9 Total Bilirubin AST ALT Alkaline Phosphatase Total Creatine Kinase CK-MB (CK-2) Troponin I B-Natriuretic Peptide 3 Total Protein Albumin Globulin Albumin/Globulin Ratio Triglycerides Cholesterol LDL Cholesterol VLDL Cholesterol HDL Cholesterol Heart Disease Risk Ratio Free T4 1.12 TSH 3rd Generation Urine Color Urine Appearance Urine pH Ur Specific [place] Urine Protein Urine Glucose (UA) Urine Ketones Urine Blood Urine Nitrate Urine Bilirubin Urine Urobilinogen Urine Leukocytes Urine RBC Urine WBC Ur Squamous Epith Cells Urine Bacteria Urine Mucus Ur Culture Indicated? Urine Opiates Screen Ur Barbiturates Screen Ur Phencyclidine Scrn U Amphetamine/Methamph U Benzodiazepines Scrn U Cocaine Metab Screen U Cannabinoids Screen 12/12/16 12/12/16 12/12/16 14:22 14:22 14:22 WBC 11.4 RBC 4.66 Hgb 14.4 Hct 42.3 MCV 90.8 MCH 31 MCHC 34.0 RDW 13.6 Plt Count 238 MPV 9.5 L Neut % (Auto) 81.1 H Lymph % (Auto) 12.2 L Cocke % (Auto) 5.4 Eos % (Auto) 0.3 Baso % (Auto) 0.4 Neut # (Auto) 9.3 H Lymph # (Auto) 1.4 Cocke # (Auto) 0.6 Eos # (Auto) 0.0 Baso # (Auto) 0.0 Immature Gran % 0.6 Nucleated RBC % 0.0 Immature Gran # 0.07 Nucleated RBCs # 0.00 Immature Plt Fraction 0.0 INR PT Patient/Control Mix D-Dimer, Quantitative Sodium 136 Potassium 3.9 Chloride 102 Carbon Dioxide 26 Anion Gap 11.9 BUN 12 Creatinine 0.70 GFR Calculation 180 BUN/Creatinine Ratio 17.00 Glucose 211 H POC Glucose Calculated Osmolality 277.0 Calcium 9.3 Magnesium Total Bilirubin 0.60 AST 68 H ALT 71 H Alkaline Phosphatase 70 Total Creatine Kinase CK-MB (CK-2) Troponin I 0.045 B-Natriuretic Peptide Total Protein 8.5 H Albumin 3.7 Globulin 4.8 H Albumin/Globulin Ratio 0.7 L Triglycerides Cholesterol LDL Cholesterol VLDL Cholesterol HDL Cholesterol Heart Disease Risk Ratio Free T4 TSH 3rd Generation 1.560 Urine Color Urine Appearance Urine pH Ur Specific [place] Urine Protein Urine Glucose (UA) Urine Ketones Urine Blood Urine Nitrate Urine Bilirubin Urine Urobilinogen Urine Leukocytes Urine RBC Urine WBC Ur Squamous Epith Cells Urine Bacteria Urine Mucus Ur Culture Indicated? Urine Opiates Screen Negative Ur Barbiturates Screen Negative Ur Phencyclidine Scrn Negative U Amphetamine/Methamph Negative U Benzodiazepines Scrn Negative U Cocaine Metab Screen Negative U Cannabinoids Screen Negative 12/12/16 12/12/16 12/12/16 14:22 14:22 20:10 WBC RBC Hgb Hct MCV MCH MCHC RDW Plt Count MPV Neut % (Auto) Lymph % (Auto) Cocke % (Auto) Eos % (Auto) Baso % (Auto) Neut # (Auto) Lymph # (Auto) Cocke # (Auto) Eos # (Auto) Baso # (Auto) Immature Gran % Nucleated RBC % Immature Gran # Nucleated RBCs # Immature Plt Fraction INR PT Patient/Control Mix D-Dimer, Quantitative <= 0.5 Sodium Potassium Chloride Carbon Dioxide Anion Gap BUN Creatinine GFR Calculation BUN/Creatinine Ratio Glucose POC Glucose Calculated Osmolality Calcium Magnesium Total Bilirubin AST ALT Alkaline Phosphatase Total Creatine Kinase 101 CK-MB (CK-2) 1.5 Troponin I 0.024 B-Natriuretic Peptide Total Protein Albumin Globulin Albumin/Globulin Ratio Triglycerides Cholesterol LDL Cholesterol VLDL Cholesterol HDL Cholesterol Heart Disease Risk Ratio Free T4 TSH 3rd Generation Urine Color Yellow Urine Appearance Slightly hazy Urine pH 5.0 Ur Specific [place] 1.018 Urine Protein 100 Urine Glucose (UA) 50 Urine Ketones 20 Urine Blood Negative Urine Nitrate Negative Urine Bilirubin Negative Urine Urobilinogen < 2.0 H Urine Leukocytes Negative Urine RBC 1 Urine WBC 2 Ur Squamous Epith Cells Occasional Urine Bacteria Occasional Urine Mucus Occasional Ur Culture Indicated? Not indicated Urine Opiates Screen Ur Barbiturates Screen Ur Phencyclidine Scrn U Amphetamine/Methamph U Benzodiazepines Scrn U Cocaine Metab Screen U Cannabinoids Screen 12/12/16 12/12/16 12/13/16 20:57 23:56 04:49 WBC RBC Hgb Hct MCV MCH MCHC RDW Plt Count MPV Neut % (Auto) Lymph % (Auto) Cocke % (Auto) Eos % (Auto) Baso % (Auto) Neut # (Auto) Lymph # (Auto) Cocke # (Auto) Eos # (Auto) Baso # (Auto) Immature Gran % Nucleated RBC % Immature Gran # Nucleated RBCs # Immature Plt Fraction INR PT Patient/Control Mix D-Dimer, Quantitative Sodium Potassium Chloride Carbon Dioxide Anion Gap BUN Creatinine GFR Calculation BUN/Creatinine Ratio Glucose POC Glucose 143 H Calculated Osmolality Calcium Magnesium Total Bilirubin AST ALT Alkaline Phosphatase Total Creatine Kinase 129 D 145 CK-MB (CK-2) 1.7 1.8 Troponin I < 0.015 < 0.015 B-Natriuretic Peptide Total Protein Albumin Globulin Albumin/Globulin Ratio Triglycerides Cholesterol LDL Cholesterol VLDL Cholesterol HDL Cholesterol Heart Disease Risk Ratio Free T4 TSH 3rd Generation Urine Color Urine Appearance Urine pH Ur Specific [place] Urine Protein Urine Glucose (UA) Urine Ketones Urine Blood Urine Nitrate Urine Bilirubin Urine Urobilinogen Urine Leukocytes Urine RBC Urine WBC Ur Squamous Epith Cells Urine Bacteria Urine Mucus Ur Culture Indicated? Urine Opiates Screen Ur Barbiturates Screen Ur Phencyclidine Scrn U Amphetamine/Methamph U Benzodiazepines Scrn U Cocaine Metab Screen U Cannabinoids Screen 12/13/16 12/13/16 12/13/16 04:49 04:49 04:49 WBC 10.9 RBC 4.33 Hgb 13.4 Hct 39.3 MCV 90.8 MCH 31 MCHC 34.1 RDW 13.5 Plt Count 252 MPV 9.6 Neut % (Auto) 63.5 Lymph % (Auto) 27.9 Cocke % (Auto) 6.9 Eos % (Auto) 0.8 Baso % (Auto) 0.4 Neut # (Auto) 6.9 Lymph # (Auto) 3.1 Cocke # (Auto) 0.8 Eos # (Auto) 0.1 Baso # (Auto) 0.0 Immature Gran % 0.5 Nucleated RBC % 0.0 Immature Gran # 0.06 Nucleated RBCs # 0.00 Immature Plt Fraction 0.0 INR PT Patient/Control Mix D-Dimer, Quantitative Sodium 139 Potassium 3.5 Chloride 101 Carbon Dioxide 27 Anion Gap 14.5 BUN 13 Creatinine 0.70 GFR Calculation 180 BUN/Creatinine Ratio 18.00 Glucose 145 H POC Glucose Calculated Osmolality 279.5 Calcium 9.4 Magnesium 2.2 Total Bilirubin 1.50 H AST 40 H ALT 60 H Alkaline Phosphatase 65 Total Creatine Kinase CK-MB (CK-2) Troponin I B-Natriuretic Peptide 74 Total Protein 7.5 Albumin 3.6 Globulin 3.9 H Albumin/Globulin Ratio 0.9 L Triglycerides 187 H Cholesterol 170 LDL Cholesterol 100.0 VLDL Cholesterol 37.4 HDL Cholesterol 47 Heart Disease Risk Ratio 3.62 Free T4 TSH 3rd Generation Urine Color Urine Appearance Urine pH Ur Specific [place] Urine Protein Urine Glucose (UA) Urine Ketones Urine Blood Urine Nitrate Urine Bilirubin Urine Urobilinogen Urine Leukocytes Urine RBC Urine WBC Ur Squamous Epith Cells Urine Bacteria Urine Mucus Ur Culture Indicated? Urine Opiates Screen Ur Barbiturates Screen Ur Phencyclidine Scrn U Amphetamine/Methamph U Benzodiazepines Scrn U Cocaine Metab Screen U Cannabinoids Screen 12/13/16 12/13/16 08:28 11:10 WBC RBC Hgb Hct MCV MCH MCHC RDW Plt Count MPV Neut % (Auto) Lymph % (Auto) Cocke % (Auto) Eos % (Auto) Baso % (Auto) Neut # (Auto) Lymph # (Auto) Cocke # (Auto) Eos # (Auto) Baso # (Auto) Immature Gran % Nucleated RBC % Immature Gran # Nucleated RBCs # Immature Plt Fraction INR PT Patient/Control Mix D-Dimer, Quantitative Sodium Potassium Chloride Carbon Dioxide Anion Gap BUN Creatinine GFR Calculation BUN/Creatinine Ratio Glucose POC Glucose 181 H 169 H Calculated Osmolality Calcium Magnesium Total Bilirubin AST ALT Alkaline Phosphatase Total Creatine Kinase CK-MB (CK-2) Troponin I B-Natriuretic Peptide Total Protein Albumin Globulin Albumin/Globulin Ratio Triglycerides Cholesterol LDL Cholesterol VLDL Cholesterol HDL Cholesterol Heart Disease Risk Ratio Free T4 TSH 3rd Generation Urine Color Urine Appearance Urine pH Ur Specific [place] Urine Protein Urine Glucose (UA) Urine Ketones Urine Blood Urine Nitrate Urine Bilirubin Urine Urobilinogen Urine Leukocytes Urine RBC Urine WBC Ur Squamous Epith Cells Urine Bacteria Urine Mucus Ur Culture Indicated? Urine Opiates Screen Ur Barbiturates Screen Ur Phencyclidine Scrn U Amphetamine/Methamph U Benzodiazepines Scrn U Cocaine Metab Screen U Cannabinoids Screen - Diagnostic Findings Procedure: Chest x-ray: report reviewed by me - EKG EKG results: interpreted by me, sinus rhythm IMark John Timothy, MD, personally performed the services described in this documentation, ascribed by Janette Sawyer NP in my presence, and it is both accurate and complete .
--- NOTE | 2016-12-14 05:23 | Order Completion Report ---
See report scanned to EMR
[2016-12-14] MEDS: LEVOTHYROXINE 100 MCG TABLET PO SCH (06:45)
[2016-12-14] MEDS ORDERED: ASPIRIN 325 MG TABLET PO SCH (09:00)
[2016-12-14] MEDS: INSULIN REGULAR 100 UNIT/ML SUBCUT SCH ×2 (09:11→12:54)
[2016-12-14] MEDS: FUROSEMIDE 20 MG/2 ML VIAL IV SCH (09:12)
[2016-12-14] MEDS: amLODIPine 10 MG TABLET PO SCH (09:12)
[2016-12-14] MEDS: PANTOPRAZOLE 40 MG TABLET PO SCH (09:13)
[2016-12-14] MEDS: METOPROLOL SUCCINATE XL 100 MG TABLET PO SCH (09:13)
[2016-12-14] MEDS: LISINOPRIL/HCTZ 20-12.5 MG TABLET PO SCH (09:13)
[2016-12-14 11:19] LABS: Albumin 3.9 G/DL (3.4-5.0); Bilirubin,Total 0.8 MG/DL (0.2-1.0); Calcium 9.2 MG/DL (8.5-10.1); Potassium 3.7 MMOL/L (3.5-5.1)
[2016-12-14 12:13] VITALS: BP 143/65
--- NOTE | 2016-12-14 15:21 | Discharge Summary ---
ISilverio Lesley, NEVA, am scribing for, and in the presence of, Jose Elias Flores MD 15:21. Hospital Course - Hospital Course Hospital Course: CABLE LACER: Dr. Yun ([facility]) Ms. Neumann is a 41 year old WF, admitted for a syncopal episode. Her boyfriend witnessed the event and reported that the patient lost consciousness for about 2 minutes and appeared to turn blue. He attempted CPR and the patient regained consciousness. The patient was admitted to telemetry with an atrial flutter/atrial tachycardia with 2-1 AV block.The patient has a history of tachycardia and was seen at [facility] in [address] Yun. The patient did not experience chest pain.The patient was given intravenous Amiodarone, and converted back to sinus rhythm. The patient has significant DOZIER with short distances (10 feet) and that this has worsened significantly in the last 6 months to one year. The patient is morbidly obese. She was evaluated by Dr. Martino , [employer] and medically managed with beta blockers. Echocardiogram revealed normal left ventricular size and normal systolic function with an EF of 55+%. Other cardiac chambers are grossly normal, valvular structures are poorly visualized but no gross Doppler abnormalities demonstrated, aortic root normal diameter. She was evaluated by medicine while in the hospital, as she had a previous sleep study at [facility] to diagnose MCKINLEY but has had difficulty tolerating her CPAP mask due to claustrophobia. We plan to discharge the patient home today with home health follow-up. Physical therapy evaluation would be beneficial for the patient. She will be discharged home with a 30 day event monitor and will follow-up with Dr. Martino in clinic for this. She also needs to follow-up with Dr. Pearson on an outpatient basis to determine mask tolerance with her CPAP. Patient personally interviewed and examined chart reviewed. Discussed this case with JOSE Forman and agree with the assessment and evaluation plan for discharge. Patient has multiple medical issues much which is exacerbated by her obesity. Her atrial flutter with followed by Dr. Martino in this appointment has been made. She has had no further rhythm issues since admission and conversion back to sinus rhythm spontaneously. She will need follow-up for her severe sleep apnea as well. Dr. Pearson will follow with this. DISCHARGE MEDICATIONS: Amlodipine 10 mg p.o. daily ASA 325 mg p.o. daily Furosemide 20 mg p.o. daily levothyroxine 100 mcg p.o. daily Lisinopril/HCTZ 20-12.5 mg 1 p.o. twice daily Toprol-XL 100 mg p.o. every morning Potassium chloride 20 meq p.o. daily - Time spent with patient Time with patient DS: Greater than 30 minutes (record review, assessment, and documentation) Diagnosis - Discharge Diagnosis (1) Palpitations Status: Resolved (2) Supraventricular tachycardia Status: Resolved (3) Syncope and collapse Status: Resolved (4) Morbid obesity Status: Chronic (5) MCKINLEY (obstructive sleep apnea) Status: Chronic (6) Hypertension, uncontrolled Status: Chronic Specialty Discharge - Follow Up or Referrals Follow up with: Chance Martino MD [Physician] - 01/25/17 1:00 pm (Pt. to go to [facility] today for 30 day event monitor to be picked up at [facility] today before 5pm, will need follow up with Dr. Martino 5-6 wks (AFTER COMPLETION OF EVEN MONITOR TEST )) Discharge Plan - Discharge Data Disposition: Home Health Service Condition at Discharge: Stable Discharge Diet: heart healthy Activity: resume usual activities as tolerated Hygiene: may shower Weight Bearing at Discharge: full weight bearing Driving: not until seen by doctor Contact your physician if you experience:: fever over 101, Difficulty voiding, Redness or swelling, Nausea/Vomiting, Shortness of breath, Bleeding, pain uncontrolled by pain medications - Discharge Medications New amLODIPine [Norvasc] 10 mg PO DAILY #30 tablet Aspirin Tab 325 mg PO DAILY #30 tablet Potassium Chloride Cap/Tab [K Dur] 20 meq PO .PER PROTOCOL PRN #30 tablet PRN Reason: Per Protocol Rosuvastatin [Crestor] 10 mg PO BEDTIME #30 tablet Furosemide Tab [Lasix Tab] 20 mg PO DAILY #30 tablet Continue NIFEdipine [Nifedipine ER] 30 mg PO QAM Lisinopril/Hydrochlorothiazide [Lisinopril-Hctz 20-12.5 mg Tab] 1 each PO BID Metoprolol Succinate 100 mg PO QAM Levothyroxine Tab [Synthroid Tab] 100 mcg PO DAILY@0700 - Follow Up or Referral Follow Up: Chance Martino MD [Physician] - 01/25/17 1:00 pm (Pt. to go to [facility] today for 30 day event monitor to be picked up at [facility] today before 5pm, will need follow up with Dr. Martino 5-6 wks (AFTER COMPLETION OF EVEN MONITOR TEST )) - Forms/Instructions Exam - Constitutional Vitals: Period Temp Pulse Resp BP Sys/Jain Pulse Ox Last 24 Hr 96.6 F-99.2 F 80-89 18-20 124-163/58-72 94-98 Discharge Results Labs on day of discharge: Labs from last 24 hours 12/14/16 12/14/16 12/14/16 12:04 11:37 10:48 Sodium 136 Potassium 3.7 Chloride 101 Carbon Dioxide 23 Anion Gap 15.7 H BUN 11 Creatinine 0.80 GFR Calculation 153 BUN/Creatinine Ratio 13.00 Glucose 157 H POC Glucose 175 H 177 H Calculated Osmolality 273.0 Calcium 9.2 Total Bilirubin 0.80 AST 85 H ALT 74 H Alkaline Phosphatase 70 Total Protein 8.0 Albumin 3.9 Globulin 4.1 H Albumin/Globulin Ratio 0.9 L 12/14/16 12/13/16 12/13/16 07:40 18:55 15:02 Sodium Potassium Chloride Carbon Dioxide Anion Gap BUN Creatinine GFR Calculation BUN/Creatinine Ratio Glucose POC Glucose 171 H 155 H 168 H Calculated Osmolality Calcium Total Bilirubin AST ALT Alkaline Phosphatase Total Protein Albumin Globulin Albumin/Globulin Ratio DS: Provider Consults: 12/12/16 18:53 Consult to Case Mgmt/Social Srvs [CONS] Routine Reason for Case Mgmt/Social Srvs: Rehab 12/13/16 12:41 Consult to Physician [CONS] Routine Comment: Consulting Provider: Meliza Pearson Person Notified: DR. PEARSON Date Notified: 12/13/16 Time Notified: 12:43 12/13/16 12:42 Consult to Sleep Center [CONS] Routine Reason for Sleep Center: Sleep Center Physician Consult Comment: evaluate for MCKINLEY 12/13/16 16:39 Consult to Physical Therapy [CONS] Routine Reason for Physical Therapy: Evaluate and Treat Expected date of discharge: 12/14/16 Mark Sanchez John Timothy, MD, personally performed the services described in this documentation, ascribed by Janette Sawyer NP in my presence, and it is both accurate and complete 521 .
--- NOTE | 2016-12-14 16:51 | Physician Query Form ---
CLICK EDIT DOCUMENT TO SELECT QUERY ANSWER --> OK --> SIGN Chuy Bustamante RN Clinical Kard[employer] Clerk W) [phone] (f) [phone] [email or web address] PROVIDERS: Make your selection(s) from the choices in EACH section by typing an "x" and enter comments in the comment section. Please use your independent medical judgment in providing your response. This request does not imply that any particular answer is desired or expected. CLINICAL INDICATORS: (Providers should not edit this section) CXR report states "mild CHF", BNP=74, "Echocardiogram revealed normal left ventricular size and normal systolic function with an EF of 55+%". Pt. treated with IV Lasix. Please clarify if you agree with CXR findings of CHF. Please provide further specificity regarding CHF. ACUITY: ( ) Acute ( ) Chronic ( ) Acute on Chronic ( ) Clinically unable to determine TYPE: ( ) Systolic (HFrEF - heart failure with reduced systolic function/EF) ( ) Diastolic (HFpEF - heart failure with preserved systolic function/EF) ( ) Combined Systolic/Diastolic (x) Pt. does not have CHF ( ) Other, please specify: ( ) Clinically unable to determine ( ) Past Medical History of Systolic CHF ( ) Past Medical History of Diastolic CHF ( ) Clinically unable to determine COMMENTS: PLEASE ALSO DOCUMENT RESPONSE IN PROGRESS NOTES AND/OR DISCHARGE SUMMARY Use of terms such as suspected, likely, or probable (associated with a specific diagnosis that is being evaluated, monitored, or treated as if it exists) are acceptable and can be restated in the discharge summary if not ruled out. MTDD
[2016-12-14] MEDS ORDERED: ROSUVASTATIN 10 MG TABLET PO SCH (21:00)
[2016-12-15] MEDS ORDERED: FUROSEMIDE 20 MG TABLET PO SCH (09:00)
== END 2016-12-14 16:30 | disposition home health service (06) | DRG 201 ==
LOC: EDBD → EDUNIT# → N.ED 14:03 → N.EDINP 17:11 → N.TELEN 18:50
PROVIDERS: ADMIT Internal Medicine Cardiovascular Disease; ATTEND Internal Medicine Cardiovascular Disease

== ENCOUNTER 2018-04-03 20:19 | Observation (INO) ==
[2018-04-03] MEDS ORDERED: FUROSEMIDE 100 MG/10 ML VIAL IV STA (21:21)
[2018-04-03] MEDS ORDERED: ASPIRIN 325 MG TABLET PO STA (21:21)
[2018-04-03] MEDS ORDERED: MORPHINE 4 MG/1 ML VIAL IV STA (21:21)
[2018-04-03] MEDS ORDERED: NITROGLYCERIN 2% OINT 1 INCH/GM PACK TOP STA (21:21)
[2018-04-03] MEDS ORDERED: ALBUTEROL/IPRATROPIUM 3 ML NEB RESP TX STA (21:21)
[2018-04-03] MEDS ORDERED: ONDANSETRON 4 MG/2 ML VIAL IV STA (21:21)
[2018-04-03 22:14] LABS: Basophils % 0.4 % (0.0-0.8); Eosinophils # 0.2 10*3/uL (0.0-0.87); Eosinophils % 1.8 % (0.00-10.9); Hematocrit 40.2 VOL% (35.7-47.0); Hemoglobin 12.9 GM/DL (12.0-16.0); Immature Granulocytes % 0.6 %; Immature Granulocytes Absolute 0.05 #; Lymphocytes # 3.4 10*3/uL (1.4-4.0); Lymphocytes % 37.3 % (21.3-54.2); Mean Corpuscular HGB Conc 32.1 GM/DL (32-36); Mean Corpuscular Hemoglobin 29 PG (27-34); Mean Corpuscular Volume 91.2 FL (87-102); Mean Platelet Volume 9.2 FL (9.6-12.0); Monocytes # 0.5 10*3/uL (0.11-0.8); Neutrophils # 4.9 10*3/uL (1.4-7.4); Neutrophils % 53.9 % (38.7-73.9); Platelet Count 219 T/CUMM (130-400); Red Blood Count 4.41 MC/CUMM (3.8-5.5); Red Cell Distribution Width 13.4 % (9.3-17.3)
[2018-04-03 22:33] LABS: INR 0.9; PT Patient Result 10.2 SECS
[2018-04-03 22:34] LABS: Albumin 3.6 G/DL (3.4-5.0); Bilirubin,Total 0.5 MG/DL (0.2-1.0); Calcium 8.9 MG/DL (8.5-10.1); Osmolality,Calculated 274.2 MOS/KG (273-304); Potassium 3.9 MMOL/L (3.5-5.1); Total Protein 8.1 G/DL (6.4-8.3)
[2018-04-03] MEDS ORDERED: ENOXAPARIN 120 MG/0.8 ML SYRINGE SUBCUT STA (23:08)
[2018-04-03 23:09] LABS: Apearance,Urine CLEAR (Clear); Bacteria,Urine Few /HPF (Few); Bilirubin,Urine Negative (Negative); Blood, Urine Negative (Negative); Glucose,Urine (UA) Negative (Negative); Ketones,Urine Negative (Negative); Mucus,Urine Occasional /LPF (Occasional); Nitrite,Urine Negative (Negative); Protein,Urine Negative; RBC,Urine <1 /HPF (0-4); Squamous Epithelial Cell,Urine Occasional /HPF (0-10); Urine Color Straw (Yellow); Urine Specific Gravity 1.006 (1.001-1.035); Urine Urobilinogen < 2.0 EU/DL (0.2-1.0); WBC,Urine 1 /HPF (0-6)
[2018-04-04] MEDS ORDERED: DEXTROSE 50% 25 GM/50 ML SYRINGE IV PRN (00:39)
[2018-04-04] MEDS ORDERED: MORPHINE 4 MG/1 ML VIAL IV PRN (00:39)
[2018-04-04] MEDS ORDERED: ACETAMINOPHEN 325 MG TABLET PO PRN (00:39)
[2018-04-04] MEDS ORDERED: ONDANSETRON 4 MG/2 ML VIAL IV PRN (00:39)
[2018-04-04] MEDS ORDERED: GLUCAGON 1 MG VIAL IM PRN (00:39)
[2018-04-04] MEDS ORDERED: DOCUSATE SODIUM 100 MG CAPSULE PO PRN (00:39)
[2018-04-04] MEDS ORDERED: NITROGLYCERIN SL 0.4 MG TABLET SL PRN (01:09)
[2018-04-04 04:53] LABS: Basophils # 0.1 10*3/uL (0.0-0.2); Basophils % 0.6 % (0.0-0.8); Eosinophils # 0.2 10*3/uL (0.0-0.87); Eosinophils % 1.7 % (0.00-10.9); Hematocrit 37.5 VOL% (35.7-47.0); Immature Granulocytes % 0.9 %; Immature Granulocytes Absolute 0.08 #; Lymphocytes # 3.1 10*3/uL (1.4-4.0); Mean Corpuscular Hemoglobin 30 PG (27-34); Mean Corpuscular Volume 92.4 FL (87-102); Mean Platelet Volume 9.9 FL (9.6-12.0); Monocytes # 0.5 10*3/uL (0.11-0.8); Neutrophils # 4.9 10*3/uL (1.4-7.4); Neutrophils % 55.8 % (38.7-73.9); Platelet Count 217 T/CUMM (130-400); Red Blood Count 4.06 MC/CUMM (3.8-5.5); Red Cell Distribution Width 13.3 % (9.3-17.3); White Blood Count 8.8 T/CUMM (4-12)
[2018-04-04 05:27] LABS: Calcium 8.6 MG/DL (8.5-10.1); Osmolality,Calculated 275.1 MOS/KG (273-304); Potassium 3.8 MMOL/L (3.5-5.1); Thyroid Stimulating Hormone 2.14 uIU/ml (0.358-3.74)
[2018-04-04] MEDS ORDERED: INSULIN REGULAR 100 UNIT/ML SUBCUT SCH (07:30)
[2018-04-04 08:52] VITALS: BP 167/92
[2018-04-04] MEDS ORDERED: PANTOPRAZOLE 40 MG TABLET PO SCH (09:00)
[2018-04-04] MEDS ORDERED: amLODIPine 10 MG TABLET PO SCH (09:00)
[2018-04-04] MEDS ORDERED: NON-FORMULARY MEDICATION (Omeprazole [Omeprazole] 40 MG) PO SCH (09:00)
[2018-04-04] MEDS ORDERED: LISINOPRIL/HCTZ 20-12.5 MG TABLET PO SCH (09:00)
[2018-04-04] MEDS ORDERED: POTASSIUM CHLORIDE 20 MEQ TABLET PO SCH (09:00)
[2018-04-04] MEDS ORDERED: ASPIRIN 325 MG TABLET PO SCH (09:00)
[2018-04-04] MEDS ORDERED: METOPROLOL SUCCINATE XL 100 MG TABLET PO SCH ×2 (09:00)
[2018-04-04] MEDS ORDERED: FUROSEMIDE 20 MG TABLET PO SCH (09:00)
[2018-04-04] MEDS ORDERED: metFORMIN 500 MG TABLET PO SCH (17:00)
[2018-04-04] MEDS ORDERED: ENOXAPARIN 40 MG/0.4 ML SYRINGE SUBCUT SCH (21:00)
[2018-04-05] MEDS ORDERED: LEVOTHYROXINE 100 MCG TABLET PO SCH (07:00)
== END 2018-04-04 09:03 | disposition home or self-care (01) ==
LOC: N.ED 20:19 → N.EDINP 20:19 → N.3E 04-04 00:57
PROVIDERS: ADMIT Emergency Medicine; ATTEND Emergency Medicine